=== PATIENT | male | born 2000 | race Caucasian/White ===

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

== ENCOUNTER 2019-01-20 17:57 | Emergency (ER) | payer OTHER ==
[~2019-01-20] VITALS: Ht 180.3 cm; Wt 63.5 kg
[~2019-01-20 17:57] MED LIST changes: -IV RINGERS,LACTATED 1000ML 1,000 ML IV SCH; -LIDOCAINE 2% PF 5 ML VIAL. ONE; -PROPOFOL 40 ML IV ONE
[2019-01-20 18:05] VITALS: BP 149/61
[2019-01-20] MEDS ORDERED: ONDANSETRON PF 4 MG/2 ML VIAL. IVP ONE (18:15)
[2019-01-20] MEDS ORDERED: IV NORMAL SALINE 1000ML BAG 1,000 ML IV ONE (18:15)
[2019-01-20] MEDS ORDERED: KETOROLAC 15 MG/ML VIAL. IVP ONE (18:15)
--- NOTE | 2019-01-20 18:15 | PHYS DOC ---
Past Medical History Attending Signature I have participated in the care of this patient and I have reviewed and agree with all pertinent clinical information above including history, exam, and recommendations. (RAYARY AGOSTO MD) Adult General Chief Complaint Chief Complaint: BLOOD IN URINE HPI HPI Patient is a 18 year old male patient with no significant medical history who presents to the ED today complaining of hematuria and bilateral flank pain since yesterday. Patient states he was seen at [facility] where he reports he was treated for an STD that he does not have. Patient is also complaining of nausea and vomiting. Denies any fever. Patient rates the pain is mild and intermittent. Denies any exacerbating or relieving factors. (CORINA GOODE APRN) Review of Systems Review of Systems Constitutional: Denies fever or chills [] Eyes: Denies change in visual acuity, redness, or eye pain [] HENT: Denies nasal congestion or sore throat [] Respiratory: Denies cough or shortness of breath [] Cardiovascular: No additional information not addressed in HPI [] GI: Denies abdominal pain, nausea, vomiting, bloody stools or diarrhea [] : Reports bilateral flank pain. Reports hematuria. Denies dysuria Musculoskeletal: Denies back pain or joint pain [] Integument: Denies rash or skin lesions [] Neurologic: Denies headache, focal weakness or sensory changes [] Endocrine: Denies polyuria or polydipsia [] All other systems were reviewed and found to be within normal limits, except as documented in this note. (CORINA GOODE APRN) Current Medications Current Medications Current Medications Medications (Trade) Dose Ordered Sig/Suzi Start Time Stop Time Status Last Admin Dose Admin Ketorolac Tromethamine (Toradol 15mg Vial) 15 mg 1X ONCE 01/20/19 18:15 01/20/19 18:16 DC 01/20/19 18:32 15 MG Ondansetron HCl (Zofran) 4 mg 1X ONCE 01/20/19 18:15 01/20/19 18:16 DC 01/20/19 18:32 4 MG Sodium Chloride 1,000 ml @ 1,000 mls/hr 1X ONCE 01/20/19 18:15 01/20/19 19:05 DC (RAYRAY AGOSTO MD) Allergies Allergies Allergies Coded Allergies Type Severity Reaction Last Updated Verified latex Allergy Intermediate Itching 09/23/18 Yes lidocaine Adverse Reaction Severe Anaphylaxis 09/23/18 Yes fentanyl Adverse Reaction Intermediate Itching 09/23/18 Yes morphine Adverse Reaction Intermediate Itching 09/23/18 Yes Uncoded Allergies Type Severity Reaction Last Updated Verified METAL Allergy Mild Rash 11/22/18 (RAYRAY AGOSTO MD) Physical Exam Physical Exam Constitutional: Well developed, well nourished, no acute distress, non-toxic appearance. [] HENT: Normocephalic, atraumatic, bilateral external ears normal, oropharynx moist, no oral exudates, nose normal. [] Eyes: PERRLA, EOMI, conjunctiva normal, no discharge. [] Neck: Normal range of motion, no tenderness, supple, no stridor. [] Cardiovascular:Heart rate regular rhythm, no murmur [] Lungs & Thorax: Bilateral breath sounds clear to auscultation [] Abdomen: Bowel sounds normal, soft, no tenderness, no masses, no pulsatile masses. [] Skin: Warm, dry, no erythema, no rash. [] Back: No tenderness, mild bilateral CVA tenderness. [] Extremities: No tenderness, no cyanosis, no clubbing, ROM intact, no edema. [] Neurologic: Alert and oriented X 3, normal motor function, normal sensory function, no focal deficits noted. [] Psychologic: Affect normal, judgement normal, mood normal. [] (CORINA GOODE APRN) Current Patient Data Vital Signs Vital Signs Date Time Temp Pulse Resp B/P (MAP) Pulse Ox O2 Delivery O2 Flow Rate FiO2 01/20/19 18:05 83 14 149/61 (90) 100 Room Air 01/20/19 18:00 98.4 98.4 (RAYRAY AGOSTO MD) Lab Values Laboratory Tests Test 01/20/19 18:04 01/20/19 18:20 Urine Collection Type Void Urine Color Yellow Urine Clarity Clear Urine pH 7.0 Urine Specific [place] <=1.005 Urine Protein Negative mg/dL (NEG-TRACE) Urine Glucose (UA) Negative mg/dL (NEG) Urine Ketones (Stick) Negative mg/dL (NEG) Urine Blood Negative (NEG) Urine Nitrite Negative (NEG) Urine Bilirubin Negative (NEG) Urine Urobilinogen Dipstick 0.2 mg/dL (0.2 mg/dL) Urine Leukocyte Esterase Negative (NEG) Urine RBC 0 /HPF (0-2) Urine WBC 0 /HPF (0-4) Urine Squamous Epithelial Cells Occ /LPF Urine Bacteria 0 /HPF (0-FEW) Urine Opiates Screen Pos (NEG) Urine Methadone Screen Neg (NEG) Urine Barbiturates Neg (NEG) Urine Phencyclidine Screen Neg (NEG) Urine Amphetamine/Methamphetamine Neg (NEG) Urine Benzodiazepines Screen Neg (NEG) Urine Cocaine Screen Neg (NEG) Urine Cannabinoids Screen Neg (NEG) Urine Ethyl Alcohol Neg (NEG) White Blood Count 6.9 x10^3/uL (4.0-11.0) Red Blood Count 5.18 x10^6/uL (4.30-5.70) Hemoglobin 15.5 g/dL (13.0-17.5) Hematocrit 45.5 % (39.0-53.0) Mean Corpuscular Volume 88 fL (79-100) Mean Corpuscular Hemoglobin 30 pg (25-35) Mean Corpuscular Hemoglobin Concent 34 g/dL (31-37) Red Cell Distribution Width 12.9 % (11.5-14.5) Platelet Count 272 x10^3/uL (140-400) Neutrophils (%) (Auto) 59 % (31-73) Lymphocytes (%) (Auto) 30 % (24-48) Monocytes (%) (Auto) 9 % (0-9) Eosinophils (%) (Auto) 2 % (0-3) Basophils (%) (Auto) 0 % (0-3) Neutrophils # (Auto) 4.1 x10^3/uL (1.8-7.7) Lymphocytes # (Auto) 2.0 x10^3/uL (1.0-4.8) Monocytes # (Auto) 0.6 x10^3/uL (0.0-1.1) Eosinophils # (Auto) 0.2 x10^3/uL (0.0-0.7) Basophils # (Auto) 0.0 x10^3/uL (0.0-0.2) Sodium Level 140 mmol/L (136-145) Potassium Level 3.9 mmol/L (3.5-5.1) Chloride Level 104 mmol/L (98-107) Carbon Dioxide Level 29 mmol/L (21-32) Anion Gap 7 (6-14) Blood Urea Nitrogen 8 mg/dL (8-26) Creatinine 0.9 mg/dL (0.7-1.3) Estimated GFR (Cockcroft-Gault) 108.7 BUN/Creatinine Ratio 9 (6-20) Glucose Level 111 mg/dL (70-99) H Calcium Level 9.4 mg/dL (8.5-10.1) Total Bilirubin 0.3 mg/dL (0.2-1.0) Aspartate Amino Transferase (AST) 39 U/L (15-37) H Alanine Aminotransferase (ALT) 21 U/L (16-63) Alkaline Phosphatase 86 U/L (46-116) Total Protein 8.1 g/dL (6.4-8.2) Albumin 4.6 g/dL (3.4-5.0) Albumin/Globulin Ratio 1.3 (1.0-1.7) Lipase 68 U/L (73-393) L Ethyl Alcohol Level < 10 mg/dL (0-10) Laboratory Tests 01/20/19 18:20 Laboratory Tests 01/20/19 18:20 (RAYRAY AGOSTO MD) Lab Values Laboratory Tests Test 01/20/19 18:04 01/20/19 18:20 Urine Collection Type Void Urine Color Yellow Urine Clarity Clear Urine pH 7.0 Urine Specific [place] <=1.005 Urine Protein Negative mg/dL (NEG-TRACE) Urine Glucose (UA) Negative mg/dL (NEG) Urine Ketones (Stick) Negative mg/dL (NEG) Urine Blood Negative (NEG) Urine Nitrite Negative (NEG) Urine Bilirubin Negative (NEG) Urine Urobilinogen Dipstick 0.2 mg/dL (0.2 mg/dL) Urine Leukocyte Esterase Negative (NEG) Urine RBC 0 /HPF (0-2) Urine WBC 0 /HPF (0-4) Urine Squamous Epithelial Cells Occ /LPF Urine Bacteria 0 /HPF (0-FEW) Urine Opiates Screen Pos (NEG) Urine Methadone Screen Neg (NEG) Urine Barbiturates Neg (NEG) Urine Phencyclidine Screen Neg (NEG) Urine Amphetamine/Methamphetamine Neg (NEG) Urine Benzodiazepines Screen Neg (NEG) Urine Cocaine Screen Neg (NEG) Urine Cannabinoids Screen Neg (NEG) Urine Ethyl Alcohol Neg (NEG) White Blood Count 6.9 x10^3/uL (4.0-11.0) Red Blood Count 5.18 x10^6/uL (4.30-5.70) Hemoglobin 15.5 g/dL (13.0-17.5) Hematocrit 45.5 % (39.0-53.0) Mean Corpuscular Volume 88 fL (79-100) Mean Corpuscular Hemoglobin 30 pg (25-35) Mean Corpuscular Hemoglobin Concent 34 g/dL (31-37) Red Cell Distribution Width 12.9 % (11.5-14.5) Platelet Count 272 x10^3/uL (140-400) Neutrophils (%) (Auto) 59 % (31-73) Lymphocytes (%) (Auto) 30 % (24-48) Monocytes (%) (Auto) 9 % (0-9) Eosinophils (%) (Auto) 2 % (0-3) Basophils (%) (Auto) 0 % (0-3) Neutrophils # (Auto) 4.1 x10^3/uL (1.8-7.7) Lymphocytes # (Auto) 2.0 x10^3/uL (1.0-4.8) Monocytes # (Auto) 0.6 x10^3/uL (0.0-1.1) Eosinophils # (Auto) 0.2 x10^3/uL (0.0-0.7) Basophils # (Auto) 0.0 x10^3/uL (0.0-0.2) Sodium Level 140 mmol/L (136-145) Potassium Level 3.9 mmol/L (3.5-5.1) Chloride Level 104 mmol/L (98-107) Carbon Dioxide Level 29 mmol/L (21-32) Anion Gap 7 (6-14) Blood Urea Nitrogen 8 mg/dL (8-26) Creatinine 0.9 mg/dL (0.7-1.3) Estimated GFR (Cockcroft-Gault) 108.7 BUN/Creatinine Ratio 9 (6-20) Glucose Level 111 mg/dL (70-99) H Calcium Level 9.4 mg/dL (8.5-10.1) Total Bilirubin 0.3 mg/dL (0.2-1.0) Aspartate Amino Transferase (AST) 39 U/L (15-37) H Alanine Aminotransferase (ALT) 21 U/L (16-63) Alkaline Phosphatase 86 U/L (46-116) Total Protein 8.1 g/dL (6.4-8.2) Albumin 4.6 g/dL (3.4-5.0) Albumin/Globulin Ratio 1.3 (1.0-1.7) Lipase 68 U/L (73-393) L Ethyl Alcohol Level < 10 mg/dL (0-10) Laboratory Tests 01/20/19 18:20 Laboratory Tests 01/20/19 18:20 (CORINA GOODE APRN) EKG EKG [] (CORINA GOODE APRN) Radiology/Procedures Radiology/Procedures []PROCEDURE: CT ABDOMEN PELVIS WO CONTRAST CT abdomen and pelvis without contrast 01/20/2019. Reason for exam: Bilateral flank pain. Helical noncontrast images were performed. Exposure: One or more of the following individualized dose reduction techniques were utilized for this examination: 1. Automated exposure control 2. Adjustment of the mA and/or kV according to patient size 3. Use of iterative reconstruction technique. FINDINGS: The lung bases are clear. The liver and spleen are homogeneous in density and normal in configuration. Kidneys show no apparent mass, calcification or obstruction. Evaluation of the solid organs is somewhat limited by lack of IV contrast. The adrenal glands are not enlarged. The pancreas appears normal. No retroperitoneal or mesenteric adenopathy is seen. There is no apparent abdominal mass or inflammatory process. There is moderate stool throughout the colon. There is no evidence of bowel obstruction. Images through the pelvis show no abnormality of the distal ureters or bladder. No pelvic or inguinal adenopathy is seen. There is no apparent pelvic mass or inflammatory process. The appendix is not clearly discerned. There is a linear high density area along the margin of the cecum. This may indicate prior appendectomy. There are no pericecal inflammatory changes. IMPRESSION: No evidence of renal or ureteral stone. No identified acute abnormality. Electronically signed by: Garo Gilliam Jr., MD (01/20/2019 6:46 PM) [facility] DICTATED and SIGNED BY: GARO GILLIAM Jr, MD DATE: 01/20/19 1846 (CORINA GOODE APRN) Course & Med Decision Making Course & Med Decision Making Pertinent Labs and Imaging studies reviewed. (See chart for details) This is a 18-year-old male patient presenting to the ED today with complaints of bilateral flank pain, hematuria, nausea and vomiting, symptoms began yesterday. Patient was seen at [facility] yesterday and reports he was treated for STDs. Urine analysis is negative for blood, negative for infection. CBC CMP lipase with no acute findings. UDS noted for opiates CT of the abdomen and pelvic was negative for any acute findings, no ureteral st ones noted. Patient was discharged to home. Instructed to follow-up with his own PCP in the course of this week. Upon discharge patient and girlfriend started asking me if I can give him a prescription for pain medicine. Informed them patient has no indication for any narcotics for any prescription pain medicine. Recommended Tylenol/Motrin. Patient himself started arguing stating he is already taking Tylenol and Motrin and they are not help he states he wants something stronger. Informed patient he has no indication for narcotics or any other prescription pain medicine. Informed them we have a big problems with drugs/addiction and we have to help the government stop this problem. Recommended Tylenol/ Motrin. Informed patient if he is not interested in taking Tylenol Motrin he can contact his own PCP or the pain clinic but from the emergency stand point he has no indication for narcotics. (CORINA GOODE APRN) Dragon Disclaimer Dragon Disclaimer This electronic medical record was generated, in whole or in part, using a voice recognition dictation system. (CORINA GOODE APRN) Departure Departure Impression: Primary Impression: Hematuria Additional Impressions: Flank pain Drug-seeking behavior Disposition: HOME, SELF-CARE Condition: STABLE Referrals: AMALIA GR MD (PCP) follow up next week with your doctor Patient Instructions: Hematuria, Adult Additional Instructions: You were dilated in the emergency room for hematuria and flank pain. Your lab work as well as CAT scan of the abdomen and pelvis were negative for any acute findings. Please follow-up with your primary care doctor in the course of this week. You can take [id number] pain relievers as needed. Problem Qualifiers Primary Impression: Hematuria Hematuria type: unspecified type Qualified Codes: R31.9 - Hematuria, unspecified CORINA GOODE APRN Jan 20, 2019 18:15 RAYRAY AGOSTO MD Jan 21, 2019 03:30
[2019-01-20 18:23] LABS: BILIRUBIN,URINE NEGATIVE (NEG); CLARITY,URINE CLEAR; COLOR,URINE YELLOW; NITRITE,URINE NEGATIVE (NEG); PROTEIN,URINE NEGATIVE (NEG-TRACE); UROBILINOGEN,URINE 0.2 mg/dL (0.2 mg/dL)
[2019-01-20 18:27] LABS: BARBITURATES NEG (NEG); BENZODIAZEPINES NEG (NEG); CANNABINOIDS NEG (NEG); COCAINE NEG (NEG); METHADONE NEG (NEG); OPIATES POS (NEG); PHENCYCLIDINE NEG (NEG)
[2019-01-20 18:28] LABS: AMPHETAMINE/METHAMPHETAMINE NEG (NEG)
[2019-01-20 18:30] LABS: BASO % 0 % (0-3); EOS # 0.2 x10^3/uL (0.0-0.7); EOS % 2 % (0-3); HEMATOCRIT 45.5 % (39.0-53.0); HEMOGLOBIN 15.5 g/dL (13.0-17.5); LYMPH % 30 % (24-48); MEAN CORPUSCULAR HEMOGLOBIN 30 pg (25-35); MEAN CORPUSCULAR HGB CONC 34 g/dL (31-37); MEAN CORPUSCULAR VOLUME 88 fL (79-100); MONO # 0.6 x10^3/uL (0.0-1.1); MONO % 9 % (0-9); NEUT # 4.1 x10^3/uL (1.8-7.7); NEUT % 59 % (31-73); PLATELET COUNT 272 x10^3/uL (140-400); RED BLOOD COUNT 5.18 x10^6/uL (4.30-5.70); RED CELL DISTRIBUTION WIDTH 12.9 % (11.5-14.5); WHITE BLOOD COUNT 6.9 x10^3/uL (4.0-11.0)
[2019-01-20 18:31] LABS: BACTERIA,URINE 0 /HPF (0-FEW); RBC,URINE 0 /HPF (0-2); SQUAMOUS EPITHELIAL CELL,UR OCC /LPF; WBC,URINE 0 /HPF (0-4)
[2019-01-20 18:38] LABS: CALCIUM 9.4 mg/dL (8.5-10.1); CREATININE 0.9 mg/dL (0.7-1.3); GFR 108.7; POTASSIUM 3.9 mmol/L (3.5-5.1)
[2019-01-20 18:43] LABS: ALBUMIN 4.6 g/dL (3.4-5.0); ALBUMIN/GLOBULIN RATIO 1.3 (1.0-1.7); TOTAL BILIRUBIN 0.3 mg/dL (0.2-1.0); TOTAL PROTEIN 8.1 g/dL (6.4-8.2)
--- NOTE | 2019-01-20 18:49 | RAD ---
CT abdomen and pelvis without contrast 01/20/2019. Reason for exam: Bilateral flank pain. Helical noncontrast images were performed. Exposure: One or more of the following individualized dose reduction techniques were utilized for this examination: 1. Automated exposure control 2. Adjustment of the mA and/or kV according to patient size 3. Use of iterative reconstruction technique. FINDINGS: The lung bases are clear. The liver and spleen are homogeneous in density and normal in configuration. Kidneys show no apparent mass, calcification or obstruction. Evaluation of the solid organs is somewhat limited by lack of IV contrast. The adrenal glands are not enlarged. The pancreas appears normal. No retroperitoneal or mesenteric adenopathy is seen. There is no apparent abdominal mass or inflammatory process. There is moderate stool throughout the colon. There is no evidence of bowel obstruction. Images through the pelvis show no abnormality of the distal ureters or bladder. No pelvic or inguinal adenopathy is seen. There is no apparent pelvic mass or inflammatory process. The appendix is not clearly discerned. There is a linear high density area along the margin of the cecum. This may indicate prior appendectomy. There are no pericecal inflammatory changes. IMPRESSION: No evidence of renal or ureteral stone. No identified acute abnormality. Electronically signed by: Walter Gilliam Jr., MD (01/20/2019 6:46 PM) [facility]
== END 2019-01-20 18:58 | disposition home or self-care (01) ==
LOC: ER 17:57
DX: R31.9 Hematuria, unspecified (principal); R10.9 Unspecified abdominal pain; Z76.5 Malingerer [conscious simulation]; R11.2 Nausea with vomiting, unspecified; Z88.4 Allergy status to anesthetic agent; Z88.5 Allergy status to narcotic agent; Z88.8 Allergy status to other drugs, medicaments and biological substances; Z91.040 Latex allergy status
CPT/HCPCS: 36415; 74176; 80053; 80307; 81001; 83690; 85025; 96374; 96375; 99285; G0480; J1885; J2405

== ENCOUNTER → 2019-01-30 | Day surgery (SDC) | payer OTHER ==
[~2019-01-30] MED LIST changes: +BUTA1CAP PO; +CEPH500C PO; +DOXY20TA5 PO; +IV RINGERS,LACTATED 1000ML 1,000 ML IV SCH; +OMEP20TA63 PO; +ONDA4TAB7 PO; +PROPOFOL 40 ML IV ONE
[2019-01-30 09:31] VITALS: BP 116/68
--- NOTE | 2019-01-30 11:16 | CONS ---
DATE OF CONSULTATION: 01/30/2019 UPDATED HISTORY AND PHYSICAL REFERRING PHYSICIAN: Dr. Raghu Tracey. REASON: Gastric ulcer recheck. HISTORY OF PRESENT ILLNESS: A 18-year-old male whose past medical history is significant for asthma, anxiety, GERD and a gastric ulcer, which was diagnosed in further evaluation of nausea and vomiting, is seen for surveillance endoscopy to confirm healing, most likely is secondary to NSAID use, which he has been taking for headaches with Motrin. H. pylori or malignancy were negative on previous biopsies and omeprazole 40 mg daily has been well tolerated, nausea and vomiting since ceased. He is otherwise feeling better. PAST MEDICAL HISTORY: Gastric ulcers, anxiety, asthma, GERD. ALLERGIES: FENTANYL, LATEX, LIDOCAINE, MORPHINE. MEDICATIONS: Include ____, cephalexin, Zyrtec, doxycycline, omeprazole, and Zofran. SOCIAL HISTORY: He is a nondrinker, nonsmoker. FAMILY HISTORY: Significant for Crohn's in his mother. PAST SURGICAL HISTORY: Has had appendectomy and cholecystectomy. REVIEW OF SYSTEMS: Per records. PHYSICAL EXAMINATION: GENERAL: Reveals a well-nourished, well-developed male who is alert, cooperative, in no acute distress. VITAL SIGNS: Temperature 98.3, pulse 116, respirations 20. HEENT: Reveals normocephalic, atraumatic head. Pupils and extraocular muscles are not tested. Sclerae anicteric. NECK: Supple. LUNGS: Clear. CARDIOVASCULAR: Reveals an S1, S2 without S3, S4 or appreciable murmur. ABDOMEN: Reveals a soft abdomen, normal bowel sounds without appreciable hepatosplenomegaly. EXTREMITIES: Reveals no cyanosis, clubbing or edema. IMPRESSION: Gastric ulcers, Helicobacter pylori negative, on PPI therapy most likely secondary to nonsteroidal anti-inflammatory drug. Upper endoscopy to confirm healing and rule out potential malignancy. JAKE CARRILLO MD DR: LANEY/juan JOB#: [id number] / [id number]
== END ==
LOC: ENDOS 08:00
PROVIDERS: ATTEND Internal Medicine Gastroenterology
DX: K25.9 Gastric ulcer, unspecified as acute or chronic, without hemorrhage or perforation (principal); K29.50 Unspecified chronic gastritis without bleeding; J45.909 Unspecified asthma, uncomplicated; F41.9 Anxiety disorder, unspecified; K21.9 Gastro-esophageal reflux disease without esophagitis; Z88.5 Allergy status to narcotic agent; Z88.6 Allergy status to analgesic agent; Z88.4 Allergy status to anesthetic agent; Z91.040 Latex allergy status; Z90.49 Acquired absence of other specified parts of digestive tract
CPT/HCPCS: 43235; J2704

== ENCOUNTER 2019-02-07 11:02 | Emergency (ER) | payer OTHER ==
[~2019-02-07] VITALS: Ht 180.3 cm; Wt 63.5 kg
[~2019-02-07 11:02] MED LIST changes: -IV RINGERS,LACTATED 1000ML 1,000 ML IV SCH; -PROPOFOL 40 ML IV ONE
[2019-02-07 12:13] VITALS: BP 126/73
[2019-02-07 12:28] LABS: BILIRUBIN,URINE NEGATIVE (NEG); CLARITY,URINE CLEAR; COLOR,URINE YELLOW; NITRITE,URINE NEGATIVE (NEG); PROTEIN,URINE NEGATIVE (NEG-TRACE); UROBILINOGEN,URINE 0.2 mg/dL (0.2 mg/dL)
[2019-02-07 12:38] LABS: BACTERIA,URINE 0 /HPF (0-FEW); RBC,URINE 0 /HPF (0-2); SQUAMOUS EPITHELIAL CELL,UR FEW /LPF; WBC,URINE 0 /HPF (0-4)
[2019-02-07 12:39] LABS: BARBITURATES NEG (NEG); BENZODIAZEPINES NEG (NEG); CANNABINOIDS NEG (NEG); COCAINE NEG (NEG); METHADONE NEG (NEG); OPIATES NEG (NEG); PHENCYCLIDINE NEG (NEG)
[2019-02-07 12:49] LABS: AMPHETAMINE/METHAMPHETAMINE NEG (NEG)
[2019-02-07 13:21] LABS: BASO % 1 % (0-3); EOS # 0.1 x10^3/uL (0.0-0.7); EOS % 2 % (0-3); HEMATOCRIT 44.2 % (39.0-53.0); LYMPH # 1.4 x10^3/uL (1.0-4.8); LYMPH % 28 % (24-48); MEAN CORPUSCULAR HEMOGLOBIN 30 pg (25-35); MEAN CORPUSCULAR HGB CONC 34 g/dL (31-37); MEAN CORPUSCULAR VOLUME 87 fL (79-100); MONO # 0.5 x10^3/uL (0.0-1.1); MONO % 9 % (0-9); NEUT # 3.1 x10^3/uL (1.8-7.7); NEUT % 60 % (31-73); PLATELET COUNT 271 x10^3/uL (140-400); RED BLOOD COUNT 5.06 x10^6/uL (4.30-5.70); RED CELL DISTRIBUTION WIDTH 12.9 % (11.5-14.5); WHITE BLOOD COUNT 5.2 x10^3/uL (4.0-11.0)
[2019-02-07 13:32] LABS: CALCIUM 9.4 mg/dL (8.5-10.1); CREATININE 0.7 mg/dL (0.7-1.3); GFR 145.3
[2019-02-07 13:36] LABS: ALBUMIN 4.8 g/dL (3.4-5.0); ALBUMIN/GLOBULIN RATIO 1.3 (1.0-1.7); TOTAL BILIRUBIN 0.3 mg/dL (0.2-1.0); TOTAL PROTEIN 8.4 g/dL (6.4-8.2)
--- NOTE | 2019-02-07 14:25 | RAD ---
Complete abdominal ultrasound 02/07/2019 1:28 PM Clinical History: Flank pain Technique: Ultrasound examination of the abdomen was performed, and multiple static images were submitted for review. Comparison: CT of the abdomen January 20, 2019 Findings: The visualized portions of the pancreas are within normal limits. The visualized aorta and IVC are unremarkable. The gallbladder is surgically absent. The common bile duct is nondilated allowing for this measuring 4 mm in diameter. The liver measures 14 cm longitudinally. The liver is normal in echotexture. No intrahepatic biliary ductal dilatation is seen. No focal hepatic lesions are identified. Spleen is normal in appearance. The bilateral kidneys are normal in appearance without evidence of obstructive uropathy, nephrolithiasis, or focal renal lesion. Right kidney measures 10.1 cm in length. Left kidney measures 10.5 cm in length. Impression: Unremarkable sonographic appearance of the abdomen Electronically signed by: Yonny Boswell MD (02/07/2019 2:22 PM) [id number]
--- NOTE | 2019-02-07 15:31 | PHYS DOC ---
Past Medical History Past Medical History: No Pertinent History, Other Additional Past Medical Histor: IBS, TBI Past Surgical History: Appendectomy, Cholecystectomy Alcohol Use: None Drug Use: None Adult General Chief Complaint Chief Complaint: PAIN ON URINATION HPI HPI Patient is a 18 year old male patient presenting to the ED today complaining of 5/10 flank pain and dysuria for one week. Patient states she was seen at [facility] a few weeks ago and was given medicine to help him with pain when he voids but the medicine is not helping. Patient denies any concerns for STDs. He states he was treated for STDs multiple times with no improvement in his symptoms. Off note patient was seen in the ED on January 20, 2019 for similar complaints, he had a full workup including CAT scan which was negative. He was also seen at [facility] on January 19, 2019 for similar complaints. Mother openly the states if we are not going to give patient anything for his pain we will not believe it. Review of Systems Review of Systems Constitutional: Denies fever or chills [] Eyes: Denies change in visual acuity, redness, or eye pain [] HENT: Denies nasal congestion or sore throat [] Respiratory: Denies cough or shortness of breath [] Cardiovascular: No additional information not addressed in HPI [] GI: Denies abdominal pain, nausea, vomiting, bloody stools or diarrhea [] : Reports dysuria and flank pain, denies hematuria [] Musculoskeletal: Denies back pain or joint pain [] Integument: Denies rash or skin lesions [] Neurologic: Denies headache, focal weakness or sensory changes [] All other systems were reviewed and found to be within normal limits, except as documented in this note. Allergies Allergies Allergies Coded Allergies Type Severity Reaction Last Updated Verified lidocaine Allergy Severe Anaphylaxis 01/30/19 Yes latex Allergy Intermediate Itching 01/30/19 Yes fentanyl Adverse Reaction Intermediate Itching 01/30/19 Yes morphine Adverse Reaction Intermediate Itching 01/30/19 Yes Uncoded Allergies Type Severity Reaction Last Updated Verified METAL Allergy Mild Rash 11/22/18 Physical Exam Physical Exam Constitutional: Well developed, well nourished, no acute distress, non-toxic appearance. [] HENT: Normocephalic, atraumatic, bilateral external ears normal, oropharynx moist, no oral exudates, nose normal. [] Eyes: PERRLA, EOMI, conjunctiva normal, no discharge. [] Neck: Normal range of motion, no tenderness, supple, no stridor. [] Cardiovascular:Heart rate regular rhythm, no murmur [] Lungs & Thorax: Bilateral breath sounds clear to auscultation [] Abdomen: Bowel sounds normal, soft, no tenderness, no masses, no pulsatile masses. [] Skin: Warm, dry, no erythema, no rash. [] Back: No tenderness, no CVA tenderness. [] Extremities: No tenderness, no cyanosis, no clubbing, ROM intact, no edema. [] Neurologic: Alert and oriented X 3, normal motor function, normal sensory function, no focal deficits noted. [] Psychologic: Affect normal, judgement normal, mood normal. [] Current Patient Data Vital Signs Vital Signs Date Time Temp Pulse Resp B/P (MAP) Pulse Ox O2 Delivery O2 Flow Rate FiO2 02/07/19 12:13 98.3 88 16 126/73 (90) 99 Room Air 98.3 Lab Values Laboratory Tests Test 02/07/19 12:01 02/07/19 13:05 Urine Collection Type Unknown Urine Color Yellow Urine Clarity Clear Urine pH 7.0 Urine Specific Allen 1.015 Urine Protein Negative mg/dL (NEG-TRACE) Urine Glucose (UA) Negative mg/dL (NEG) Urine Ketones (Stick) Negative mg/dL (NEG) Urine Blood Negative (NEG) Urine Nitrite Negative (NEG) Urine Bilirubin Negative (NEG) Urine Urobilinogen Dipstick 0.2 mg/dL (0.2 mg/dL) Urine Leukocyte Esterase Negative (NEG) Urine RBC 0 /HPF (0-2) Urine WBC 0 /HPF (0-4) Urine Squamous Epithelial Cells Few /LPF Urine Bacteria 0 /HPF (0-FEW) Urine Mucus Mod /LPF Urine Opiates Screen Neg (NEG) Urine Methadone Screen Neg (NEG) Urine Barbiturates Neg (NEG) Urine Phencyclidine Screen Neg (NEG) Urine Amphetamine/Methamphetamine Neg (NEG) Urine Benzodiazepines Screen Neg (NEG) Urine Cocaine Screen Neg (NEG) Urine Cannabinoids Screen Neg (NEG) Urine Ethyl Alcohol Neg (NEG) White Blood Count 5.2 x10^3/uL (4.0-11.0) Red Blood Count 5.06 x10^6/uL (4.30-5.70) Hemoglobin 15.0 g/dL (13.0-17.5) Hematocrit 44.2 % (39.0-53.0) Mean Corpuscular Volume 87 fL (79-100) Mean Corpuscular Hemoglobin 30 pg (25-35) Mean Corpuscular Hemoglobin Concent 34 g/dL (31-37) Red Cell Distribution Width 12.9 % (11.5-14.5) Platelet Count 271 x10^3/uL (140-400) Neutrophils (%) (Auto) 60 % (31-73) Lymphocytes (%) (Auto) 28 % (24-48) Monocytes (%) (Auto) 9 % (0-9) Eosinophils (%) (Auto) 2 % (0-3) Basophils (%) (Auto) 1 % (0-3) Neutrophils # (Auto) 3.1 x10^3/uL (1.8-7.7) Lymphocytes # (Auto) 1.4 x10^3/uL (1.0-4.8) Monocytes # (Auto) 0.5 x10^3/uL (0.0-1.1) Eosinophils # (Auto) 0.1 x10^3/uL (0.0-0.7) Basophils # (Auto) 0.0 x10^3/uL (0.0-0.2) Sodium Level 141 mmol/L (136-145) Potassium Level 4.0 mmol/L (3.5-5.1) Chloride Level 102 mmol/L (98-107) Carbon Dioxide Level 29 mmol/L (21-32) Anion Gap 10 (6-14) Blood Urea Nitrogen 7 mg/dL (8-26) L Creatinine 0.7 mg/dL (0.7-1.3) Estimated GFR (Cockcroft-Gault) 145.3 BUN/Creatinine Ratio 10 (6-20) Glucose Level 92 mg/dL (70-99) Calcium Level 9.4 mg/dL (8.5-10.1) Total Bilirubin 0.3 mg/dL (0.2-1.0) Aspartate Amino Transferase (AST) 19 U/L (15-37) Alanine Aminotransferase (ALT) 22 U/L (16-63) Alkaline Phosphatase 93 U/L (46-116) Total Protein 8.4 g/dL (6.4-8.2) H Albumin 4.8 g/dL (3.4-5.0) Albumin/Globulin Ratio 1.3 (1.0-1.7) Lipase 57 U/L (73-393) L Ethyl Alcohol Level < 10 mg/dL (0-10) Laboratory Tests 02/07/19 13:05 Laboratory Tests 02/07/19 13:05 EKG EKG [] Radiology/Procedures Radiology/Procedures []PROCEDURE: ABDOMEN COMPLETE Complete abdominal ultrasound 02/07/2019 1:28 PM Clinical History: Flank pain Technique: Ultrasound examination of the abdomen was performed, and multiple static images were submitted for review. Comparison: CT of the abdomen January 20, 2019 Findings: The visualized portions of the pancreas are within normal limits. The visualized aorta and IVC are unremarkable. The gallbladder is surgically absent. The common bile duct is nondilated allowing for this measuring 4 mm in diameter. The liver measures 14 cm longitudinally. The liver is normal in echotexture. No intrahepatic biliary ductal dilatation is seen. No focal hepatic lesions are identified. Spleen is normal in appearance. The bilateral kidneys are normal in appearance without evidence of obstructive uropathy, nephrolithiasis, or focal renal lesion. Right kidney measures 10.1 cm in length. Left kidney measures 10.5 cm in length. Impression: Unremarkable sonographic appearance of the abdomen Electronically signed by: Yonny Guillaume MD (02/07/2019 2:22 PM) [id number] DICTATED and SIGNED BY: YONNY GUILLAUME MD DATE: 02/07/19 1422 Course & Med Decision Making Course & Med Decision Making Pertinent Labs and Imaging studies reviewed. (See chart for details) This is a 18-year-old male patient presenting to the ED today with dysuria and flank pain for one week. Patient himself and mother who is present reports being seen at [facility] for similar complaints a weeks ago and was given medication to help him with pain when he urinates, he states the medication is not helping, patient was also treated for STDs. Mother openly the states if we are not going to give patient anything for his pain we will not believe it. Urine analysis is negative for infection, negative for blood. CBC, CMP and lipase-no acute findings. Abdominal ultrasound is negative. Patient was given results and follow-up information. Mother walked in to the ED express area while patient was leaving the Ed and started cursing calling the RN curse words including "fuck you" as she stomped out of the Ed. Security was aware Records from [facility] [place] shows he was seen on 01/21/2019 treated for STDS with azithromycin, Rocephin and Flagyl [place] Disclaimer Stella Disclaimer This electronic medical record was generated, in whole or in part, using a voice recognition dictation system. Departure Departure Impression: Primary Impression: Flank pain Additional Impression: Dysuria Disposition: 01 HOME, SELF-CARE Condition: STABLE Referrals: UNKNOWN PCP NAME (PCP) follow up with your doctor in 1-2 weeks Patient Instructions: Dysuria-Brief, Flank Pain, [id number] Additional Instructions: You were seen in the emergency room for flank pain and dysuria, we did an ultrasound of your abdomen which was negative. We did lab work as well as urine test which were negative. Please follow-up with your primary care doctor. Scripts Tamsulosin Hcl (FLOMAX) 0.4 Mg Cap.er.24h 1 CAP PO DAILY, #7 CAP 0 Refills Prov: CORINA GOODE APRN 02/07/19 Phenazopyridine Hcl (PYRIDIUM) 100 Mg Tablet 1 TAB PO TID for urinary discomfort for 2 Days, #6 TAB 0 Refills Prov: CORINA GOODE APRN 02/07/19 Problem Qualifiers CORINA GOODE APRN Feb 07, 2019 15:31
[2019-02-07] MEDS ORDERED: PHEN100T82 PO (15:40)
[2019-02-07] MEDS ORDERED: TAMS0.4C97 PO (15:40)
== END 2019-02-07 15:54 | disposition home or self-care (01) ==
LOC: ER 11:02
DX: R10.9 Unspecified abdominal pain (principal); R30.0 Dysuria; K58.9 Irritable bowel syndrome, unspecified; Z87.820 Personal history of traumatic brain injury; Z90.89 Acquired absence of other organs; Z90.49 Acquired absence of other specified parts of digestive tract; Z88.4 Allergy status to anesthetic agent; Z91.040 Latex allergy status; Z88.5 Allergy status to narcotic agent; Z88.8 Allergy status to other drugs, medicaments and biological substances
CPT/HCPCS: 36415; 76700; 80053; 80307; 81001; 83690; 85025; 99285; G0480

== ENCOUNTER 2019-04-15 16:23 | Emergency (ER) | payer OTHER ==
[~2019-04-15] VITALS: Ht 180.3 cm; Wt 63.0 kg
[~2019-04-15 16:23] MED LIST changes: -CETI10TA22 PO; +CETI10TA24 PO; +PHEN100T82 PO; +TAMS0.4C97 PO
--- NOTE | 2019-04-15 18:26 | PHYS DOC ---
Past Medical History Past Medical History: Asthma, Other Additional Past Medical Histor: IBS, TBI, Crohns, "TIA" Past Surgical History: Appendectomy, Cholecystectomy Additional Information: 03/21 ppd Alcohol Use: None Drug Use: None Adult General Chief Complaint Chief Complaint: ABDOMINAL PAIN HPI HPI Patient is a 18 year old history of chronic abdominal pain, irritable bowel syndrome, peptic ulcer disease, cholecystectomy, and Crohn's disease currently on a PPI and prednisone who presents with persistent generalized upper abdominal pain and melena. Symptoms been ongoing for the past 2 weeks. Denies vomiting, fever chills, sweats and bloody stools. Denies dizziness, lightheadedness. Denies weight loss. No other acute symptoms. Patient states he was contacted by his GI specialist and instructed to come to the emergency department for further evaluation. Denies other acute symptoms or pain complaints. [] Review of Systems Review of Systems ROS as per HPI All other systems were reviewed and found to be within normal limits, except as documented in this note. Current Medications Current Medications Current Medications Medications (Trade) Dose Ordered Sig/Suzi Start Time Stop Time Status Last Admin Dose Admin Famotidine (Pepcid Vial) 20 mg 1X ONCE 04/15/19 18:45 04/15/19 18:46 DC 04/15/19 19:42 20 MG Allergies Allergies Allergies Coded Allergies Type Severity Reaction Last Updated Verified fentanyl Allergy Severe sob, itching, fainting 04/15/19 Yes lidocaine Allergy Severe Anaphylaxis 01/30/19 Yes morphine Allergy Severe sob, itching, fainting 04/15/19 Yes latex Allergy Intermediate rash 04/15/19 Yes nickel Allergy Intermediate rash 04/15/19 Yes Physical Exam Physical Exam Constitutional: Well developed, well nourished, no acute distress, non-toxic appearance. [] HENT: Normocephalic, atraumatic, bilateral external ears normal, oropharynx moist, nose normal. [] Eyes: PERRLA, EOMI, conjunctiva normal, no discharge. [] Neck: Normal range of motion, no tenderness, supple, no stridor. [] Cardiovascular:Heart rate regular rhythm, no murmur [] Lungs & Thorax: Bilateral breath sounds clear to auscultation [] Abdomen: Bowel sounds normal, soft, mid abdominal pain, TTP. No rebound, rigidity or guarding. [] Skin: Warm, dry. [] Back: No tenderness. [] Extremities: No tenderness, no edema. [] Neurologic: Alert and oriented X 3, normal motor function, normal sensory function, no focal deficits noted. [] Psychologic: Affect normal, judgement normal, mood normal. [] Current Patient Data Vital Signs Vital Signs Date Time Temp Pulse Resp B/P (MAP) Pulse Ox O2 Delivery O2 Flow Rate FiO2 04/15/19 17:20 98.8 93 22 142/61 (88) 98 Room Air 98.8 Lab Values Laboratory Tests Test 04/15/19 19:00 White Blood Count 8.6 x10^3/uL (4.0-11.0) Red Blood Count 4.88 x10^6/uL (4.30-5.70) Hemoglobin 14.5 g/dL (13.0-17.5) Hematocrit 42.7 % (39.0-53.0) Mean Corpuscular Volume 87 fL (79-100) Mean Corpuscular Hemoglobin 30 pg (25-35) Mean Corpuscular Hemoglobin Concent 34 g/dL (31-37) Red Cell Distribution Width 13.1 % (11.5-14.5) Platelet Count 237 x10^3/uL (140-400) Neutrophils (%) (Auto) 84 % (31-73) H Lymphocytes (%) (Auto) 12 % (24-48) L Monocytes (%) (Auto) 4 % (0-9) Eosinophils (%) (Auto) 0 % (0-3) Basophils (%) (Auto) 0 % (0-3) Neutrophils # (Auto) 7.3 x10^3/uL (1.8-7.7) Lymphocytes # (Auto) 1.0 x10^3/uL (1.0-4.8) Monocytes # (Auto) 0.3 x10^3/uL (0.0-1.1) Eosinophils # (Auto) 0.0 x10^3/uL (0.0-0.7) Basophils # (Auto) 0.0 x10^3/uL (0.0-0.2) Sodium Level 142 mmol/L (136-145) Potassium Level 4.1 mmol/L (3.5-5.1) Chloride Level 103 mmol/L (98-107) Carbon Dioxide Level 27 mmol/L (21-32) Anion Gap 12 (6-14) Blood Urea Nitrogen 8 mg/dL (8-26) Creatinine 0.6 mg/dL (0.7-1.3) L Estimated GFR (Cockcroft-Gault) 173.6 BUN/Creatinine Ratio 13 (6-20) Glucose Level 104 mg/dL (70-99) H Calcium Level 9.5 mg/dL (8.5-10.1) Total Bilirubin 0.2 mg/dL (0.2-1.0) Aspartate Amino Transferase (AST) 16 U/L (15-37) Alanine Aminotransferase (ALT) 29 U/L (16-63) Alkaline Phosphatase 82 U/L (46-116) C-Reactive Protein, Quantitative < 0.5 mg/L (0-3.3) Total Protein 7.5 g/dL (6.4-8.2) Albumin 4.5 g/dL (3.4-5.0) Albumin/Globulin Ratio 1.5 (1.0-1.7) Lipase 54 U/L (73-393) L Laboratory Tests 04/15/19 19:00 Laboratory Tests 04/15/19 19:00 EKG EKG [] Radiology/Procedures Radiology/Procedures [] Course & Med Decision Making Course & Med Decision Making Pertinent Labs and Imaging studies reviewed. (See chart for details) [Chronic abdominal pain on steroids history of Crohn's colitis, peptic ulcer disease, irritable bowel syndrome without change of symptomology. Case and lab reviewed with Dr. Stephenson the patient's GI specialist who will coordinate outpatient CT enterography recommendations of continued steroids. Labs and recommendations reviewed with family member and patient prior to departure.] Dragon Disclaimer Dragon Disclaimer This electronic medical record was generated, in whole or in part, using a voice recognition dictation system. Departure Departure Impression: Primary Impression: Chronic abdominal pain Disposition: HOME, SELF-CARE Condition: STABLE Referrals: NO PCP (PCP) Patient Instructions: Abdominal Pain Additional Instructions: You were evaluated in the ED for abdominal pain. Was obtained and is nondiagnostic. The exact cause of your symptoms has not been determined. Please contact Dr. Canseco's office tomorrow to scheduled outpatient CT eneterography in the next 1-2 days. In the meantime, continue all home medications as directed. Return to the ED if new or worsening symptoms JOSE R MCCARTHY DO Apr 15, 2019 18:26
[2019-04-15] MEDS ORDERED: FAMOTIDINE 20 MG/2 ML VIAL IVP ONE (18:45)
[2019-04-15 19:03] LABS: BASO % 0 % (0-3); EOS % 0 % (0-3); HEMATOCRIT 42.7 % (39.0-53.0); HEMOGLOBIN 14.5 g/dL (13.0-17.5); LYMPH % 12 % (24-48); MEAN CORPUSCULAR HEMOGLOBIN 30 pg (25-35); MEAN CORPUSCULAR HGB CONC 34 g/dL (31-37); MEAN CORPUSCULAR VOLUME 87 fL (79-100); MONO # 0.3 x10^3/uL (0.0-1.1); MONO % 4 % (0-9); NEUT # 7.3 x10^3/uL (1.8-7.7); NEUT % 84 % (31-73); PLATELET COUNT 237 x10^3/uL (140-400); RED BLOOD COUNT 4.88 x10^6/uL (4.30-5.70); RED CELL DISTRIBUTION WIDTH 13.1 % (11.5-14.5); WHITE BLOOD COUNT 8.6 x10^3/uL (4.0-11.0)
[2019-04-15 19:20] LABS: ANION GAP 12 (6-14); BLOOD UREA NITROGEN 8 mg/dL (8-26); BUN/CREATININE RATIO 13 (6-20); CALCIUM 9.5 mg/dL (8.5-10.1); CARBON DIOXIDE 27 mmol/L (21-32); CHLORIDE 103 mmol/L (98-107); CREATININE 0.6 mg/dL (0.7-1.3); GFR 173.6; GLUCOSE 104 mg/dL (70-99); POTASSIUM 4.1 mmol/L (3.5-5.1); SODIUM 142 mmol/L (136-145)
[2019-04-15 19:26] LABS: ALBUMIN 4.5 g/dL (3.4-5.0); ALBUMIN/GLOBULIN RATIO 1.5 (1.0-1.7); ALK PHOS 82 U/L (46-116); ALT (SGPT) 29 U/L (16-63); AST (SGOT) 16 U/L (15-37); LIPASE 54 U/L (73-393); TOTAL BILIRUBIN 0.2 mg/dL (0.2-1.0); TOTAL PROTEIN 7.5 g/dL (6.4-8.2)
[2019-04-15 19:27] LABS: C-REACTIVE PROTEIN < 0.5 mg/L (0-3.3)
[2019-04-15 19:46] VITALS: BP 126/76
== END 2019-04-15 20:21 | disposition home or self-care (01) ==
LOC: ER 16:23
DX: G89.29 Other chronic pain (principal); R10.84 Generalized abdominal pain; R10.10 Upper abdominal pain, unspecified; K58.9 Irritable bowel syndrome, unspecified; J45.909 Unspecified asthma, uncomplicated; F17.200 Nicotine dependence, unspecified, uncomplicated; Z87.11 Personal history of peptic ulcer disease; Z86.73 Personal history of transient ischemic attack (TIA), and cerebral infarction without residual deficits; Z90.49 Acquired absence of other specified parts of digestive tract; Z90.89 Acquired absence of other organs; Z88.4 Allergy status to anesthetic agent; Z91.040 Latex allergy status; Z88.5 Allergy status to narcotic agent; Z88.8 Allergy status to other drugs, medicaments and biological substances
CPT/HCPCS: 36415; 80053; 83690; 85025; 86140; 96374; 99284; J3490

== ENCOUNTER → 2019-05-17 | Outpatient (CLI) | payer OTHER ==
[~2019-05-17] MED LIST changes: +IOHEXOL 300 MG/ML 100ML VIAL. IV ONE; +IOHEXOL 350 MG/ML 100 ML VIAL. IV ONE
--- NOTE | 2019-05-17 16:50 | RAD ---
INDICATION: Abdominal pain and diarrhea COMPARISON: January 20, 2019 TECHNIQUE: Axial CT images obtained through the abdomen and pelvis with contrast per enterography protocol. One or more of the following individualized dose reduction techniques were utilized for this examination: 1. Automated exposure control; 2. Adjustment of the mA and/or kV according to patient size; 3. Use of iterative reconstruction technique. FINDINGS: Abdominal aorta is not aneurysmal. No intrahepatic bile duct dilation. Postcholecystectomy changes. No peripancreatic fluid collection. Spleen is unremarkable. Urinary bladder partially distended at time of exam. No hydronephrosis. High density at right lower quadrant likely from post appendectomy changes. No CT evidence of active inflammation of the large bowel. Mild prominence the wall of the terminal ileum IMPRESSION: * Mild prominence the wall of the terminal ileum. This is a mild finding but mild inflammation from inflammatory bowel disease is not excluded. The remainder of the bowel does not appear inflamed. Electronically signed by: Primo Peralta MD (05/17/2019 4:47 PM) [facility]
== END ==
LOC: CT 14:34
PROVIDERS: ATTEND Internal Medicine Gastroenterology
DX: K52.9 Noninfective gastroenteritis and colitis, unspecified (principal)
CPT/HCPCS: 74170; Q9967